=== PATIENT | female | born 1955 | race Two or more races ===

== ENCOUNTER 2017-01-18 05:45 | Emergency (ER) | payer OTHER ==
[~2017-01-18] VITALS: Ht 175.3 cm; Wt 70.8 kg
--- NOTE | 2017-01-18 05:45 | NUR ---
TO BED 8 A 61 YO FEMALE BIBRA W C/O "MY BLOOD PRESSURE WAS HIGH AT HOME AND I GOT SCARED"; DENIES CP/SOB. 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 PATIENT NOTED WITH ANXIETY. VSS. NAD NOTED. BREATHING EVEN AND UNLABORED. COMFORT MEASURES RENDERED. AWAITING FOR ER MD PARTIDA.
--- NOTE | 2017-01-18 06:04 | NUR ---
DR CHAMORRO AT BEDSIDE TO EVAL.
--- NOTE | 2017-01-18 06:23 | NUR ---
Patient discharged to home in stable condition. Written and verbal after care instructions given. Patient verbalizes understanding of instruction. Patient is ambulatory with steady gait, no further complaints.
[2017-01-18 06:26] VITALS: BP 147/79
== END 2017-01-18 06:26 | disposition home or self-care (01) ==
LOC: ER 05:50
DX: I10 Essential (primary) hypertension (principal); F41.9 Anxiety disorder, unspecified; E78.5 Hyperlipidemia, unspecified; F17.200 Nicotine dependence, unspecified, uncomplicated
CPT/HCPCS: 93005; 99284; A4606; Z7610

== ENCOUNTER 2019-10-24 02:03 | Emergency (ER) | payer MEDICARE, OTHER, MEDICAID ==
[~2019-10-24] VITALS: Ht 170.2 cm; Wt 76.2 kg
--- NOTE | 2019-10-24 02:08 | NUR ---
PT BIB RA WITH A C/O HTN. PT'S BP IS 155/89. PT APPEARS ANXIOUS. PT IS AA&O X4. PT AMBULATED TO ER #1 WITH A STEADY GAIT. PT ASKED FOR A MED REFILL ON LEXAPRO 5MG. PT HAS AN OLD RX WITH HER.
--- NOTE | 2019-10-24 02:15 | NUR ---
Nella brar in [facility] - 10/24/19 at [email or web address] MARTIN IS AT THE BEDSIDE SPEAKING TO THE PT.
--- NOTE | 2019-10-24 02:15 | NUR ---
DR MARTIN IS AT THE BEDSIDE.
--- NOTE | 2019-10-24 02:20 | NUR ---
FAXED MEDICATION ORDER TO [employer]OCKER/NURSING WEB PUBLISHER.
[2019-10-24] MEDS ORDERED: CITALOPRAM HYDROBROMIDE 10 MG TABLET PO SCH (02:30)
--- NOTE | 2019-10-24 02:45 | NUR ---
CALLED NURSING DIRECTOR OF GOVERNMENT SALES RE: MEDICATION. PT IS ANXIOUS AND IS C/O PAIN ON TOP OF HEAD.
[2019-10-24] MEDS ORDERED: CITALOPRAM HYDROBROMIDE 10 MG TABLET ONE (02:48)
--- NOTE | 2019-10-24 03:00 | NUR ---
PT REC'D MEDICATION ORDERED.
--- NOTE | 2019-10-24 03:22 | NUR ---
PT AMBULATED TO THE BATHROOM AND BACK TO ER1 WITH A STEADY GAIT.
--- NOTE | 2019-10-24 03:33 | NUR ---
Patient discharged to home in stable condition. Written and verbal after care instructions given. Patient verbalizes understanding of instruction AND RX. PT IS CALLING AN UBER TO TAKE HER HOME. PT'S VSS.
[2019-10-24 03:34] VITALS: BP 152/92
== END 2019-10-24 03:35 | disposition home or self-care (01) ==
LOC: ER 02:04
DX: F41.9 Anxiety disorder, unspecified (principal); I10 Essential (primary) hypertension; E78.00 Pure hypercholesterolemia, unspecified; R00.0 Tachycardia, unspecified

== ENCOUNTER 2020-05-14 21:47 | Inpatient (IN) | payer MEDICARE, OTHER ==
[~2020-05-14] VITALS: Ht 170.2 cm; Wt 80.3 kg
--- NOTE | 2020-05-14 21:55 | NUR ---
BIBRA 86 FROM HOME FOR C/O GENERALIZED WEAKNESS X11 DAYS. SOB, NAUSEA, DIARRHEA X2 DAYS. PT AAOX4 NO ACUTE DISTRESS NOTED, RESP EVEN AND UNLABORED. PLACE PT ON CARDIAC MONITORING, CONTINUOUS POX. NOTED O2 SAT 90% ON RA. PLACE PT ON O2@2L/NC. PENDING ER MD PARTIDA.
--- NOTE | 2020-05-14 22:03 | NUR ---
ER MD AT BEDSIDE TO EVAL PT WITH ORDERS RECEIVED. WILL CARRY OUT ORDERS.
--- NOTE | 2020-05-14 22:05 | NUR ---
STARTED SL 18G TO RFA, BLOOD DRAWN AND SENT TO LAB
[2020-05-14] MEDS ORDERED: ONDANSETRON HCL/PF 4 MG/2 ML VIAL IVP ONE (22:30)
[2020-05-14] MEDS ORDERED: IV NS 0.9% 1,000 ML BAG IV ONE (22:30)
[2020-05-14] MEDS ORDERED: ONDANSETRON HCL/PF 4 MG/2 ML VIAL ONE (22:32)
[2020-05-14 22:34] LABS: BASOPHILS % (AUTO) 0.3 % (0.0-2.0); HEMATOCRIT 41 % (33-45); HEMOGLOBIN 13.8 g/dL (11.5-14.8); LYMPHOCYTES # (AUTO) 1.5 /CMM (0.8-4.8); LYMPHOCYTES % (AUTO) 26.7 % (20.0-44.0); MEAN CORPUSCULAR HGB CONC 34 g/dl (31.0-36.0); MEAN CORPUSCULAR VOLUME 84 fL (82-100); MONOCYTES # (AUTO) 0.6 /CMM (0.1-1.30); MONOCYTES % (AUTO) 11.6 % (2.0-12.0); NEUTROPHILS # (AUTO) 3.3 /CMM (1.8-8.9); NEUTROPHILS % (AUTO) 61.4 % (43.0-81.0); PLATELET COUNT (AUTO) 245 /CMM (150-450); RED BLOOD CELL COUNT(AUTO) 4.83 MIL/uL (4.0-5.2); WHITE BLOOD COUNT (AUTO) 5.4 K/uL (4.3-11.0)
--- NOTE | 2020-05-14 22:38 | NUR ---
ORDER PROCESSING CLERK AT BEDSIDE FOR CXR.
[2020-05-14 22:50] LABS: ALBUMIN 3.2 g/dL (3.4-5.0); BILIRUBIN,DIRECT 0.2 mg/dL (0.0-0.2); BILIRUBIN,TOTAL 0.4 mg/dL (0.2-1.0); CREATININE 0.7 mg/dL (0.6-1.3); POTASSIUM 3.5 mmol/L (3.5-5.1); TOTAL PROTEIN, SERUM 7.7 g/dL (6.4-8.2)
[2020-05-14] MEDS ORDERED: AZITHROMYCIN 500 MG in IV D5W 250 ML IV ONE (23:30)
[2020-05-14] MEDS ORDERED: CEFTRIAXONE 1GM BAG (ER ONLY) 1 GM/50 ML PIGGYBACK IV ONE (23:30)
--- NOTE | 2020-05-14 23:42 | NUR ---
RAPID COVID AND PCR COVID SWAB COLLECTED AND SENT TO LAB.
[2020-05-14] MEDS ORDERED: AZITHROMYCIN 500 MG VIAL ONE (23:51)
[2020-05-14] MEDS ORDERED: CEFTRIAXONE 1GM BAG (ER ONLY) 50 ML IV ONE (23:51)
[2020-05-15] VITALS (7 sets, daily range): BP systolic 123–142; BP diastolic 63–85
[2020-05-15 01:25] LABS: BILIRUBIN,URINE NEGATIVE (NEGATIVE); COLOR,URINE YELLOW (YELLOW); LEUKOCYTE ESTERASE ,URINE NEGATIVE (NEGATIVE); NITRITE, URINE NEGATIVE (NEGATIVE); PROTEIN,URINE NEGATIVE (NEGATIVE); UGLUCOSE NEGATIVE (NEGATIVE); UROBILINOGEN,URINE 0.2 EU/dL (0.2)
--- NOTE | 2020-05-15 01:25 | NUR ---
TELE BED: 201
[2020-05-15] MEDS ORDERED: ALBUTEROL SULFATE 8 GM HFA.AER.AD IH PRN (01:30)
[2020-05-15] MEDS ORDERED: ONDANSETRON HCL/PF 4 MG/2 ML VIAL IVP PRN (01:30)
--- NOTE | 2020-05-15 01:30 | NUR ---
ROOM 200
[2020-05-15 01:32] LABS: BACTERIA,URINE None seen /HPF (None Seen); RBC,URINE 0-2 /HPF (0-2); WBC,URINE 0-2 /HPF (0-3)
[2020-05-15 01:33] LABS: SQUAMOUS EPITHELIAL CELL,UR Few /HPF (None Seen); URINE AMORPHOUS PHOSPHATES Few /HPF (None Seen)
--- NOTE | 2020-05-15 01:54 | NUR ---
REPORTT GIVEN TO FLORENCIA FOR LAKESHIA
--- NOTE | 2020-05-15 02:13 | NUR ---
pt was transferred to 200 under ACLS
--- NOTE | 2020-05-15 02:15 | NUR ---
TELE/RN ADMITTING NOTES: RECEIVED REPORT FROM ER NURSE MAGDALENE. PT ARRIVED TO THE UNIT AT 0210 VIA GURNEY IN STABLE CONDITION UNDER ACLS PROTOCOL. A/OX4, VERBALLY RESPONSIVE AND ABLE TO MAKE NEEDS KNOWN. NO SOB NOTED. BREATHING EVEN AND UNLABORED. ON 3L O2 VIA NC. SATURATING AT 94%. ORIENTED TO UNIT AND STAFF. BELONGINGS CHECKED, AND SIGNED. INITIAL VS TAKEN AND WNL. SKIN INTACT WARM AND DRY. IV ACCESS ON THE RFA #18G. INTACT AND PATENT.AMBULATORY WITH STEADY GAIT, STANDBY ASSISTANCE AND BED ALARM ON SINCE PT STATED SHE HAD WEAKNESS BEFORE. SAFETY MEASURES IN PLACE. BED IN LOW, LOCKED POSITION WITH SR UPX2. TELE READING AT THIS TIME SR. NO C/O PAIN. CALL LIGHT WITHIN REACH. WILL CONTINUE TO MONITOR.
[2020-05-15] MEDS: ENOXAPARIN SODIUM 40 MG/0.4 ML DISP.SYRIN SQ SCH ×2 (02:31→22:22)
[2020-05-15] MEDS: IV NS 0.9% 1,000 ML IV PRN ×2 (02:58→18:30)
--- NOTE | 2020-05-15 05:33 | NUR ---
TELE/RN NOTES: PT STATED SHE HAD GALLBLADDER PROBLEMS BEFORE AND WANTS THE DOCTOR IN THE MORNING TO BE AWARE SINCE SHE FORGOT TO INFORM THE ER DOCTOR. STABLE AT THIS TIME. NO C/O PAIN. WILL CONTINUE TO MONITOR.
--- NOTE | 2020-05-15 08:00 | NUR ---
RN OPENING NOTE Patient is resting in bed, A/O x4, showing no signs of acute distress or SOB, saturating 92% on 3L NC. Patient denies any pain or discomfort at this time. IV line is clean and intact flushing well. Patient able to ambulate to the bathroom, independent with self care. Bed is in lowest position, side rails x2 in upright position, call light is within reach, fall safety and aspiration precautions enforced. Will continue with plan of care.
[2020-05-15] MEDS: PANTOPRAZOLE 40 MG TABLET.DR PO SCH (09:13)
[2020-05-15] MEDS: ACETAMINOPHEN 325 MG TABLET PO PRN (18:32)
--- NOTE | 2020-05-15 19:00 | NUR ---
SUPPLY CLERK OPENING NOTES RECEIVED PATIENT IN BED AWAKE ALERT AND ORIENTED X4, RESPIRATIONS NOTED EVEN AND UNLABORED AT REST NOTED WITH SOB ON EXERTION FORM BATHROOM AND BACK TO BED , PT REQUESTED TO PLACE OXYGEN BACK ON 2 L VIA NC IN PLACE, ON FORECLOSURE HOME INSPECTOR SR 84, PT HAS STEADY GAIT, IV SITE TO RIGHT FA #18 G INTACT AND PATENT , NO REDNESS NO INFILTRATION PRESENT, ORIENTED TO STAFF AND CALL LIGHT AND KEPT WITHIN REACH ,SAFETY PRECAUTIONS MAINTAINED LOW BED AND LOCKED, DENIES PAIN AT THIS TIME, ALL NEEDS ATTENDED WILL CONTINUE TO MONITOR.
--- NOTE | 2020-05-15 19:39 | NUR ---
RN CLOSING NOTE Patient is resting in bed, A/O x4, showing no signs of acute distress or SOB, saturating 92% on RA. Patient denies any pain or discomfort at this time. IV line is clean and intact flushing well. Patient able to ambulate to the bathroom, independent with self care. All patient needs met, all due medications given, patient kept clean and dry throughout shift. Bed is in lowest position, side rails x2 in upright position, call light is within reach, fall safety and aspiration precautions enforced. Will endorse to shift mechanic for LAKESHIA.
[2020-05-15] MEDS ORDERED: AZITHROMYCIN 500 MG in IV D5W 250 ML IV SCH (22:00)
[2020-05-15] MEDS ORDERED: CEFTRIAXONE 1 G in IV D5W 50 ML IV SCH (22:00)
[2020-05-16] VITALS (7 sets, daily range): BP systolic 119–147; BP diastolic 70–80
[2020-05-16] MEDS: ACETAMINOPHEN 325 MG TABLET PO PRN (01:29)
--- NOTE | 2020-05-16 01:29 | NUR ---
software developer intern notes tylenol prn given for headache. will continue to monitor.
[2020-05-16 06:28] LABS: BASOPHILS % (AUTO) 0.5 % (0.0-2.0); EOSINOPHILS % (AUTO) 0.2 % (0.0-6.0); HEMATOCRIT 38 % (33-45); HEMOGLOBIN 12.9 g/dL (11.5-14.8); LYMPHOCYTES % (AUTO) 29.7 % (20.0-44.0); MEAN CORPUSCULAR HGB CONC 34 g/dl (31.0-36.0); MEAN CORPUSCULAR VOLUME 84 fL (82-100); MONOCYTES # (AUTO) 0.6 /CMM (0.1-1.30); MONOCYTES % (AUTO) 8.9 % (2.0-12.0); NEUTROPHILS % (AUTO) 60.7 % (43.0-81.0); PLATELET COUNT (AUTO) 276 /CMM (150-450); RED BLOOD CELL COUNT(AUTO) 4.51 MIL/uL (4.0-5.2); WHITE BLOOD COUNT (AUTO) 6.6 K/uL (4.3-11.0)
[2020-05-16 07:13] LABS: ALBUMIN 2.8 g/dL (3.4-5.0); BILIRUBIN,TOTAL 0.4 mg/dL (0.2-1.0); CALCIUM, SERUM 8.6 mg/dL (8.5-10.1); CREATININE 0.7 mg/dL (0.6-1.3); POTASSIUM 3.8 mmol/L (3.5-5.1)
--- NOTE | 2020-05-16 07:33 | NUR ---
CIVIL CAD TECH CLOSING NOTES PATIENT IN BED AWAKE ALERT AND ORIENTED X4, RESPIRATIONS NOTED EVEN AND UNLABORED AT REST NOTED WITH SOB ON EXERTION FORM BATHROOM AND BACK TO BED , PT REQUESTED TO PLACE OXYGEN BACK ON 2 L VIA NC IN PLACE, ON FLEX O WRITER OPERATOR SR 84, PT HAS STEADY GAIT, IV SITE TO RIGHT FA #18 G INTACT AND PATENT , NO REDNESS NO INFILTRATION PRESENT,IVF RUNNING ORDERED, CALL LIGHT KEPT WITHIN REACH ,SAFETY PRECAUTIONS MAINTAINED LOW BED AND LOCKED, DENIES PAIN AT THIS TIME, ALL NEEDS ATTENDED WILL CONTINUE TO MONITOR AND ENDORSE TO NEXT SHIFT.
--- NOTE | 2020-05-16 07:35 | NUR ---
ONCOLOGY REP SPECIALIST NOTES PATIENT RECEIVED IN BED, ALERT AND ORIENTED X 4. PATIENT ON NASAL CANNULA 2 L, WITH EVEN NON-LABORED BREATHING AND NO RESPIRATORY DISTRESS AT THIS TIME. ON BUSINESS STRATEGY MANAGER, SR 85. PATIENT SKIN WARM AND DRY TO TOUCH. DENIES ANY PAIN OR DISCOMFORT AT THIS TIME. IV ACCESS INTACT AND PATENT. SAFETY PRECAUTIONS IMPLEMENTED WITH BED LOCKED BILATERAL SIDE RAILS UP, BED IN THE LOWEST, AND CALL LIGHT WITHIN EASY REACH. WILL CONTINUE TO MONITOR.
[2020-05-16] MEDS: PANTOPRAZOLE 40 MG TABLET.DR PO SCH (07:52)
[2020-05-16 08:15] LABS: C-REACTIVE PROTEIN 4.5 mg/dL (0.0-0.9)
[2020-05-16] MEDS ORDERED: AZIT250T13 PO (11:18)
[2020-05-16] MEDS ORDERED: ALBU18HF2 IH (11:18)
[2020-05-16] MEDS ORDERED: METH4TAB3 PO (11:18)
--- NOTE | 2020-05-16 16:50 | NUR ---
MERCHANDISE CLERK NOTES PATIENT IN BED RESTING COMFORTABLY VITAL SIGNS WNL, ALERT AND ORIENTED X 4. ON ROOM AIR AT THIS TIME, WITH NO SIGNS OF RESPIRATORY DISTRESS WITH EVEN NON-LABORED BREATHING, 02 AT 93%. PATIENT SKIN WARM AND DRY TO TOUCH, SKIN ASSESSMENT DONE, ID BAND REMOVED, IV ACCESS REMOVED WITH CATHETER TIP INTACT AND APPLIED PRESSURE TO SITE. PATIENT ACCOUNTED FOR ALL BELONGINGS. PROVIDED EXIT CARE TO PATIENT. CALLED AND CONFIRMED PATIENT'S NEW PRESCRIPTION AT THE PREFERRED PHARMACY OF PATIENT. PATIENT LEFT UNIT VIA GURNEY ACCOMPANIED BY TWO BUSINESS CONTINUITY PLANNER.
== END 2020-05-16 16:50 | disposition home or self-care (01) | DRG 177 ==
LOC: ER 21:47 → TRANSITION 23:44 → OBSVTOIN 23:44 → TELE-TD 05-15 01:47 → TELE2 05-15 02:26
PROVIDERS: ADMIT Nurse Practitioner Acute Care; ATTEND Internal Medicine
DX: U07.1 COVID-19 (principal); J12.82 Pneumonia due to coronavirus disease 2019; J96.01 Acute respiratory failure with hypoxia; J18.9 Pneumonia, unspecified organism; E87.1 Hypo-osmolality and hyponatremia; E87.2 Acidosis; F41.9 Anxiety disorder, unspecified; E86.1 Hypovolemia; E66.9 Obesity, unspecified; E88.09 Other disorders of plasma-protein metabolism, not elsewhere classified; R73.9 Hyperglycemia, unspecified; Z68.27 Body mass index [BMI] 27.0-27.9, adult
CPT/HCPCS: 36415; 71045-TC; 80048-TC; 80053-TC; 80076-TC; 81001; 82728-TC; 83690-TC; 83880; 85025-TC; 86140-TC; G0378; J0456; J0696; J1650; J2405; J7030; J7060; U0003

== ENCOUNTER 2020-05-17 03:20 | Emergency (ER) | payer MEDICARE, OTHER ==
[~2020-05-17] VITALS: Ht 170.2 cm; Wt 83.5 kg
[2020-05-17 03:20] VITALS: BP 149/75
== END 2020-05-17 06:01 | disposition home or self-care (01) ==
LOC: ER 03:21
DX: U07.1 COVID-19 (principal); R53.1 Weakness; F41.9 Anxiety disorder, unspecified; F17.200 Nicotine dependence, unspecified, uncomplicated

== ENCOUNTER 2020-08-18 14:04 | Emergency (ER) | payer MEDICARE, OTHER ==
[~2020-08-18] VITALS: Ht 170.2 cm; Wt 67.1 kg
--- NOTE | 2020-08-18 14:30 | NUR ---
BIBS FROM HOME TO ER BED 6. AAOX4. NOT IN RESP DISTRESS. AMBULATORY. CAME IN FOR A L FOREARM PAIN S/P GLF. PT DENIES HITTING HER HEAD. NO PASSING OUT PRE AND POST INCIDENT. ROM IS LIMITED D/T PAIN. RADIAL PULSE APPRECIATED. MD WAS AT THE BEDSIDE FOR EVAL. ORDERS RECEIVED, NOTED AND CARRIED OUT.
[2020-08-18] MEDS ORDERED: ACETAMINOPHEN ES 500 MG TABLET ONE (14:33)
[2020-08-18] MEDS: ACETAMINOPHEN ES 500 MG TABLET PO ONE (14:36)
[2020-08-18] MEDS ORDERED: HYDR-3980 PO (15:16)
[2020-08-18 15:23] VITALS: BP 143/85
--- NOTE | 2020-08-18 15:23 | NUR ---
Patient discharged to home in stable condition. Written and verbal after care instructions given. Patient verbalizes understanding of instruction. Pt ambulatory with a steady gait
== END 2020-08-18 15:25 | disposition home or self-care (01) ==
LOC: ER 14:18
DX: S52.592A Other fractures of lower end of left radius, initial encounter for closed fracture (principal); F41.9 Anxiety disorder, unspecified; E78.00 Pure hypercholesterolemia, unspecified; Z79.899 Other long term (current) drug therapy; W01.0XXA Fall on same level from slipping, tripping and stumbling without subsequent striking against object, initial encounter; Y93.01 Activity, walking, marching and hiking; Y92.89 Other specified places as the place of occurrence of the external cause; Y99.8 Other external cause status
CPT/HCPCS: 73080-TC; 73090-TC

== ENCOUNTER 2022-12-19 04:03 | Emergency (ER) | payer MEDICARE, OTHER ==
[~2022-12-19] VITALS: Ht 167.6 cm; Wt 72.6 kg
[~2022-12-19 04:03] MED LIST: HYDR-3980 PO
[2022-12-19] MEDS ORDERED: KETOROLAC TROMETHAMINE INJ 30 MG/ML VIAL ONE (04:37)
[2022-12-19] MEDS ORDERED: KETOROLAC TROMETHAMINE INJ 30 MG/ML VIAL IV ONE (05:00)
[2022-12-19] MEDS ORDERED: IV NS 0.9% 1,000 ML BAG IV ONE (05:00)
[2022-12-19 05:04] LABS: BASOPHILS % (AUTO) 0.7 % (0.0-2.0); EOSINOPHILS # (AUTO) 0.1 K/uL (0.0-0.7); EOSINOPHILS % (AUTO) 1.5 % (0.0-6.0); HEMATOCRIT 39 % (33-45); LYMPHOCYTES # (AUTO) 2.5 K/uL (0.8-4.8); LYMPHOCYTES % (AUTO) 39.5 % (20.0-44.0); MEAN CORPUSCULAR HEMOGLOBIN 28 PG (26.0-33.0); MEAN CORPUSCULAR HGB CONC 33 g/dl (31.0-36.0); MEAN CORPUSCULAR VOLUME 85 fL (82-100); MONOCYTES # (AUTO) 0.5 K/uL (0.1-1.30); MONOCYTES % (AUTO) 7.9 % (2.0-12.0); NEUTROPHILS # (AUTO) 3.2 K/uL (1.8-8.9); NEUTROPHILS % (AUTO) 50.4 % (43.0-81.0); PLATELET COUNT (AUTO) 222 K/uL (150-450); RED BLOOD CELL COUNT(AUTO) 4.59 MIL/uL (4.0-5.2); RED CELL DISTRIBUTION WIDTH 13.5 % (11.5-15.0); WHITE BLOOD COUNT (AUTO) 6.4 K/uL (4.3-11.0)
[2022-12-19 05:17] LABS: ALBUMIN 3.9 g/dL (3.4-5.0); BILIRUBIN,DIRECT 0.1 mg/dL (0.0-0.2); BILIRUBIN,TOTAL 0.3 mg/dL (0.2-1.0); CALCIUM, SERUM 9.5 mg/dL (8.5-10.1); CREATININE 0.8 mg/dL (0.6-1.3); POTASSIUM 3.9 mmol/L (3.5-5.1); TOTAL PROTEIN, SERUM 7.6 g/dL (6.4-8.2)
[2022-12-19 05:25] LABS: APPEARANCE,URINE CLEAR (CLEAR); BILIRUBIN,URINE NEGATIVE (NEGATIVE); BLOOD, URINE NEGATIVE Ery/uL (NEGATIVE); COLOR,URINE YELLOW (YELLOW); KETONES,URINE NEGATIVE (NEGATIVE); LEUKOCYTE ESTERASE ,URINE NEGATIVE (NEGATIVE); NITRITE, URINE NEGATIVE (NEGATIVE); PROTEIN,URINE NEGATIVE (NEGATIVE); UGLUCOSE NEGATIVE (NEGATIVE); UROBILINOGEN,URINE 0.2 EU/dL (0.2)
[2022-12-19] MEDS ORDERED: CYCL5TAB PO (07:14)
[2022-12-19 07:30] VITALS: BP 126/78; TEMP 98.2; O2SAT 96
== END 2022-12-19 07:30 | disposition home or self-care (01) ==
LOC: ER 04:05
DX: M54.50 Low back pain, unspecified (principal); F41.9 Anxiety disorder, unspecified; F17.200 Nicotine dependence, unspecified, uncomplicated
CPT/HCPCS: 99285; 74176; 96374; 96361; 85025; 80048; 83690; 80076; 81003; 36415; J1885; J7030

== ENCOUNTER 2024-01-30 07:00 | Inpatient (IN) | payer MEDICARE, OTHER ==
[~2024-01-30] VITALS: Ht 167.6 cm; Wt 85.7 kg
[~2024-01-30 07:00] MED LIST changes: +CYCL5TAB PO; +FENTANYL PF 250MCG/5ML AMPUL ONE; +ROCURONIUM BROMIDE 50 MG/5 ML ONE
[2024-01-30] MEDS ORDERED: VANCOMYCIN 1 GM VIAL ONE (10:02)
[2024-01-30] MEDS ORDERED: dexaMETHasone SOD PHOSPHATE 1 ML ONE (10:02)
[2024-01-30] MEDS ORDERED: LIDOCAINE 2%-EPI 1:100,000 30 ML VIAL ONE (10:02)
[2024-01-30] MEDS ORDERED: LABETALOL HCL IV 100MG VIAL ONE (10:17)
[2024-01-30] MEDS ORDERED: LABETALOL 20 MG/4 ML VIAL ONE (11:16)
[2024-01-30 12:00] VITALS: BP 113/79; TEMP 98.6; O2SAT 96
[2024-01-30] MEDS ORDERED: IV NS 0.9% 1,000 ML IV PRN (12:00)
[2024-01-30] MEDS ORDERED: ACETAMINOPHEN 325 MG TABLET PO PRN ×2 (12:00→15:30)
[2024-01-30] MEDS ORDERED: ONDANSETRON HCL/PF 4 MG/2 ML VIAL IV PRN (12:00)
[2024-01-30] MEDS ORDERED: HYDROMORPHONE 1 MG/1 ML DISP.SYRIN IV PRN (12:00)
[2024-01-30] MEDS: LABETALOL 20 MG/4 ML VIAL IV STA (13:13)
[2024-01-30] MEDS ORDERED: DOCU100C36 PO (13:25)
[2024-01-30] MEDS ORDERED: METF-440 PO (13:25)
[2024-01-30] MEDS ORDERED: AMOX1TAB16 PO (13:25)
[2024-01-30] MEDS ORDERED: PRAV20TA4 PO (13:25)
[2024-01-30 15:11] VITALS: BP 127/76; TEMP 97.7; O2SAT 97
[2024-01-30] MEDS ORDERED: MAGNESIUM HYDROXIDE 30 ML UDC PO PRN (15:30)
[2024-01-30] MEDS ORDERED: Z GUARD REMEDY 4 OZ OINT TP PRN (15:30)
[2024-01-30] MEDS ORDERED: MAG HYDROX/AL HYDROX/SIMETH 30 ML UDC PO PRN (15:30)
[2024-01-30] MEDS ORDERED: ONDANSETRON HCL/PF 4 MG/2 ML VIAL IVP PRN (15:30)
[2024-01-30] MEDS ORDERED: ZOLPIDEM TARTRATE 5 MG TABLET PO PRN (15:30)
[2024-01-30] MEDS ORDERED: VANCOMYCIN 1 GM in IV D5W 250ml IV SCH (22:00)
== END 2024-01-30 15:40 | disposition left against medical advice (07) | DRG 497 ==
LOC: DS 07:00 → MED 11:51
PROVIDERS: ADMIT Student in an Organized Health Care Education/Training Program; ATTEND Student in an Organized Health Care Education/Training Program
PROC: 0NST04Z Reposition Right Mandible with Internal Fixation Device, Open Approach (ICD-10-PCS; principal; 2024-01-30)
PROC: 0N5T0ZZ Destruction of Right Mandible, Open Approach (ICD-10-PCS; 2024-01-30)
PROC: 0NHV04Z Insertion of Internal Fixation Device into Left Mandible, Open Approach (ICD-10-PCS; 2024-01-30)
PROC: 0NUT0KZ Supplement Right Mandible with Nonautologous Tissue Substitute, Open Approach (ICD-10-PCS; 2024-01-30)
PROC: 0NUV0KZ Supplement Left Mandible with Nonautologous Tissue Substitute, Open Approach (ICD-10-PCS; 2024-01-30)
PROC: 0N5V0ZZ Destruction of Left Mandible, Open Approach (ICD-10-PCS; 2024-01-30)
DX: S02.69XK Fracture of mandible of other specified site, subsequent encounter for fracture with nonunion (principal); X58.XXXD Exposure to other specified factors, subsequent encounter; M27.2 Inflammatory conditions of jaws; D16.5 Benign neoplasm of lower jaw bone; Z87.891 Personal history of nicotine dependence; I10 Essential (primary) hypertension; E11.9 Type 2 diabetes mellitus without complications; Z53.29 Procedure and treatment not carried out because of patient's decision for other reasons; M27.49 Other cysts of jaw; E78.5 Hyperlipidemia, unspecified; T18.0XXA Foreign body in mouth, initial encounter; W44.8XXA Other foreign body entering into or through a natural orifice, initial encounter; Y93.9 Activity, unspecified; Y92.009 Unspecified place in unspecified non-institutional (private) residence as the place of occurrence of the external cause
CPT/HCPCS: 82962-TC; 88305-TC; 88311-TC; 88312-TC; A4338; C1713; G0378; J0461; J0690; J1100; J1170; J2704; J3010; J3370; J3490; J7060